=== PATIENT | male | born 1955 | race Two or more races ===

== ENCOUNTER 2024-09-12 10:54 | Outpatient (CLI) | payer OTHER ==
[2024-09-12 11:24] LABS: BASO % 0.5 % (0.1-1.2); EOS # 0.21 (0.04-0.54); EOS % 0.9 % (0.7-7.0); LYMPH # 18.44 (1.18-3.74); LYMPH % 74.8 % (19.3-53.1); MEAN PLATELET VOLUME 9.60 fl (9.4-12.4); MONO # 0.66 (0.24-0.82); MONO % 2.7 % (4.7-12.5); NEUT # 5.14 (1.56-6.13); NEUT % 20.8 % (34.0-71.1); RED CELL DISTRIBUTION WIDTH 14.4 % (11.6-14.4)
[2024-09-12 12:10] LABS: INR 1.1
== END 2024-09-12 10:58 | disposition home or self-care (01) ==
LOC: LAB 10:54
PROVIDERS: ATTEND Radiology Diagnostic Radiology
DX: C81.00 Nodular lymphocyte predominant Hodgkin lymphoma, unspecified site (principal)

== ENCOUNTER 2024-09-30 07:25 | Outpatient (CLI) | payer OTHER ==
[2024-09-30 10:00] VITALS: BP 137/79; O2SAT 98
[2024-09-30 11:50] VITALS: BP 166/74; O2SAT 99
[2024-09-30 12:05] VITALS: BP 142/80; O2SAT 98
[2024-09-30 12:20] VITALS: BP 146/82; O2SAT 99
== END 2024-09-30 07:26 | disposition home or self-care (01) ==
LOC: TOM 07:25
PROVIDERS: ATTEND Internal Medicine Hematology & Oncology
DX: C83.18 Mantle cell lymphoma, lymph nodes of multiple sites (principal); C83.58 Lymphoblastic (diffuse) lymphoma, lymph nodes of multiple sites